=== PATIENT | male | born 1990 | race Asian ===

== ENCOUNTER 2022-09-29 23:32 | Emergency (ER) | payer BC, OTHER ==
[~2022-09-29] VITALS: Ht 162.6 cm; Wt 81.6 kg
--- NOTE | 2022-09-30 01:45 | NUR ---
BIBS FOR MID CHEST PRESSURE. TESTED + FOR COVID 3 DAYS AGO. FEVER , COUGH, NAUSEA HAVE IMPROVED. PT IS AOX4, AMBULATORY. ABLE TO MAKE NEEDS KNOWN.PLACED COMFORTABLY IN BED
[2022-09-30] MEDS ORDERED: FAMOTIDINE (20 MG) 20 MG TABLET ONE (02:12)
[2022-09-30] MEDS ORDERED: FAMOTIDINE (20 MG) 20 MG TABLET PO ONE (02:30)
[2022-09-30 02:38] LABS: BASOPHILS # (AUTO) 0.1 K/uL (0.0-0.2); BASOPHILS % (AUTO) 0.5 % (0.0-2.0); EOSINOPHILS % (AUTO) 0.2 % (0.0-6.0); HEMATOCRIT 45 % (39-51); HEMOGLOBIN 14.7 g/dL (13.5-17.5); LYMPHOCYTES % (AUTO) 6.7 % (20.0-44.0); MEAN CORPUSCULAR HGB CONC 33 g/dl (31.0-36.0); MEAN CORPUSCULAR VOLUME 88 fL (80-96); MONOCYTES # (AUTO) 1.2 K/uL (0.1-1.30); MONOCYTES % (AUTO) 7.6 % (2.0-12.0); PLATELET COUNT (AUTO) 315 K/uL (150-450); RED BLOOD CELL COUNT(AUTO) 5.12 MIL/uL (4.5-6.0); WHITE BLOOD COUNT (AUTO) 15.3 K/uL (4.3-11.0)
[2022-09-30 02:48] LABS: CALCIUM, SERUM 9.4 mg/dL (8.5-10.1); CARBON DIOXIDE 25 mmol/L (21-32); CHLORIDE 101 mmol/L (98-107); CREATININE 0.7 mg/dL (0.6-1.3); GLUCOSE 124 mg/dL (74-106); POTASSIUM 3.9 mmol/L (3.5-5.1); SODIUM SERUM 136 mmol/L (136-145); UREA NITROGEN, BLOOD 11 mg/dL (7-18)
[2022-09-30] MEDS ORDERED: FAMO-131 PO (03:24)
--- NOTE | 2022-09-30 03:29 | NUR ---
Patient discharged to home in stable condition. Written and verbal after care instructions given. Patient verbalizes understanding of instruction.
[2022-09-30 03:41] VITALS: BP 145/97
[2022-09-30 03:58] LABS: BAND % (MANUAL) 3 % (0.0-5.0); LYMPHOCYTES % (MANUAL) 5 % (16-48); MONOCYTES % (MANUAL) 3 % (0-11.0); NEUTROPHILS % (MANUAL) 89 (42-76)
== END 2022-09-30 03:42 | disposition home or self-care (01) ==
LOC: ER 23:40
DX: U07.1 COVID-19 (principal); R07.89 Other chest pain; Z79.899 Other long term (current) drug therapy
CPT/HCPCS: 36415; 71045-TC; 80048-TC; 84484-TC; 85025-TC